=== PATIENT | female | born 2000 | race Caucasian/White ===

== ENCOUNTER 2021-06-28 08:58 | Emergency (ER) | payer MEDICAID ==
[2021-06-28 09:12] VITALS: O2SAT 100
[2021-06-28] MEDS ORDERED: ROCEPHIN 1 Gm-D5w 50 ml Bag** 1 G/50 ML IVPB IV ONE ×2 (09:23→09:30)
[2021-06-28] MEDS ORDERED: CLINDAMYCIN-D5W 900 MG/50 ML*** 900 MG/50 ML BAG IV ONE (09:23)
[2021-06-28] MEDS ORDERED: CLINDAMYCIN-D5W 900 MG/50 ML*** 900 MG/50 ML BAG IV STA (09:30)
--- NOTE | 2021-06-28 09:48 | ERPHSYRPT ---
- History of Present Illness Time Seen by Provider: 06/28/21 09:10 Source: patient Exam Limitations: no limitations Patient Subjective Stated Complaint: Abscess Triage Nursing Assessment: Patient ambulated back to ED and transferred self to bed. Patient A+O X 3. Patient's skin pink, warm and dry. Patient complains of spider bite to right lower arm for one week. Patient has abscess noted to right lower arm with redness around and draining green yellow drainage with swelling down to right hand. Patient complains of constant aching pain 7/10. Physician History: Patient is a 21-year-old white female who has a history of previous intravenous drug usage who says she has been clean for several weeks now but she presents with an abscess and cellulitis to the right forearm. It has been present for 1 week getting constantly worse it started to drain spontaneously this morning. 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 Timing/Duration: week(s) (1) Quality: painful Severity: moderate Location: extremities (Right forearm) Possible Causes: other (Patient feels this is an infected insect bite which is a possibility) Associated Symptoms: blisters Allergies/Adverse Reactions: No Known Drug Allergies Allergy (Unverified 06/28/21 09:02) Hx Influenza Vaccination/Date Given: No Hx Pneumococcal Vaccination/Date Given: No Immunizations Up to Date: Yes Travel Risk - International Travel Have you traveled outside of the country in past 3 weeks: No - Coronavirus Screening Are you exhibiting any of the following symptoms?: No Close contact with a COVID-19 positive Pt in past 14-21 Days: No - Vaccine Status Have you recieved a Covid-19 vaccination: No - Review of Systems Constitutional: No Fever, No Chills Eyes: No Symptoms Ears, Nose, & Throat: No Symptoms Respiratory: No Cough, No Dyspnea Cardiac: No Chest Pain, No Edema, No Syncope Abdominal/Gastrointestinal: No Abdominal Pain, No Nausea, No Vomiting, No Diarrhea Genitourinary Symptoms: No Dysuria Musculoskeletal: No Back Pain, No Neck Pain Skin: Cellulitis, Induration, No Rash Neurological: No Dizziness, No Focal Weakness, No Sensory Changes Psychological: No Symptoms Endocrine: No Symptoms All Other Systems: Reviewed and Negative - Past Medical History Pertinent Past Medical History: No Neurological History: No Pertinent History ENT History: No Pertinent History Cardiac History: No Pertinent History Respiratory History: No Pertinent History Endocrine Medical History: No Pertinent History Musculoskeletal History: No Pertinent History GI Medical History: No Pertinent History History: No Pertinent History Psycho-Social History: No Pertinent History Female Reproductive Disorders: No Pertinent History - Past Surgical History Past Surgical History: Yes Neuro Surgical History: No Pertinent History Cardiac: No Pertinent History Respiratory: No Pertinent History Gastrointestinal: No Pertinent History Genitourinary: No Pertinent History Musculoskeletal: No Pertinent History Female Surgical History: Section - Social History Smoking Status: Current every day smoker How long have you smoked: years Exposure to second hand smoke: Yes Drug Use: marijuana, methamphetamines Patient Lives Alone: No - Female History Hx Last Menstrual Period: currently Hx Now: No - Nursing Vital Signs Nursing Vital Signs: Initial Vital Signs Temperature 98.0 F 06/28/21 09:03 Pulse Rate 100 H 06/28/21 09:03 Respiratory Rate 18 06/28/21 09:03 Blood Pressure 129/82 06/28/21 09:03 O2 Sat by Pulse Oximetry 100 06/28/21 09:03 Pain Scale Pain Intensity 7 - Physical Exam General Appearance: mild distress, alert Eye Exam: PERRL/EOMI, eyes nml inspection Ears, Nose, Throat Exam: normal ENT inspection, pharynx normal, moist mucous membranes Neck Exam: normal inspection, non-tender, supple, full range of motion Respiratory Exam: normal breath sounds, lungs clear, No respiratory distress Cardiovascular Exam: regular rate/rhythm, normal heart sounds Gastrointestinal/Abdomen Exam: soft, mass, No tenderness Back Exam: normal inspection, normal range of motion, No CVA tenderness, No vertebral tenderness Extremity Exam: normal range of motion, inflammation, swelling Neurologic Exam: alert, oriented x 3, cooperative, normal mood/affect, sensation nml, No motor deficits Skin Exam: other (Right forearm has an extensive area of cellulitis with a cent ral area of abscess that is spontaneously draining copious amounts of purulent material.) Lymphatic Exam: adenopathy, axilla node tender (R) SpO2 Interpretation: normal SpO2: 100 O2 Delivery: Room Air - Course Nursing assessment & vital signs reviewed: Yes Ordered Tests: Medication Summary Generic Name Dose Route Start Last Admin Trade Name Freq PRN Reason Stop Dose Admin Ceftriaxone Sodium/Dextrose 1 g in 50 mls @ 100 mls/hr 06/28/21 09:30 06/28/21 09:42 Rocephin 1 Gm-D5w 50 Ml Bag IV 06/28/21 09:59 100 mls/hr STAT ONE 100 mls/hr Administration Clindamycin HCl/Dextrose 900 mg in 50 mls @ 100 mls/hr 06/28/21 09:30 06/28/21 09:42 Clindamycin-D5w 900 Mg/50 Ml IV 06/28/21 09:59 100 mls/hr STAT STA 100 mls/hr Administration Discontinued Medications Generic Name Dose Route Start Last Admin Trade Name Linette PRN Reason Stop Dose Admin Clindamycin HCl/Dextrose Confirm 06/28/21 09:23 Clindamycin-D5w 900 Mg/50 Ml Administered 06/28/21 09:24 Dose 900 mg in 50 mls @ ud IV .STK-MED ONE Ceftriaxone Sodium/Dextrose Confirm 06/28/21 09:23 Rocephin 1 Gm-D5w 50 Ml Bag Administered 06/28/21 09:24 Dose 1 g in 50 mls @ ud IV .STK-MED ONE - Progress Progress: unchanged - Departure Departure Disposition: Home Clinical Impression: Abscess of right forearm Condition: Stable Critical Care Time: No Instructions: Abscess Drainage, Percutaneous (DC), Skin Abscess Prescriptions: clindamycin HCL [Cleocin HCl] 300 mg PO TID 10 Days #30 cap Cephalexin Mh 500 mg [Keflex 500 mg] 500 mg PO QID #40 cap
[2021-06-28 10:40] VITALS: BP 128/78; PULSE 80
== END 2021-06-28 10:39 | disposition home or self-care (01) ==
LOC: ED 08:58
DX: L02.413 Cutaneous abscess of right upper limb (principal); L03.113 Cellulitis of right upper limb; Z72.0 Tobacco use
CPT/HCPCS: 36000; 87070; 87077; 87186; 96365; 99284; J0696